=== PATIENT | male | born 1980 | race Caucasian/White ===

== ENCOUNTER 2018-10-14 12:57 | Emergency (ER) | payer SELFPAY ==
[~2018-10-14] VITALS: Ht 177.8 cm; Wt 73.0 kg
[2018-10-14 13:00] VITALS: BP 136/86
[2018-10-14] MEDS ORDERED: BACITRACIN ZINC OINT UDPKT TOP ONE (14:00)
[2018-10-14] MEDS ORDERED: LIDOCAINE HCL/PF 1% 10 MG/ML 5ML VIAL IJ ONE (14:00)
== END 2018-10-14 16:06 | disposition home or self-care (01) ==
LOC: ER 12:57
DX: S01.01XA Laceration without foreign body of scalp, initial encounter (principal); W17.89XA Other fall from one level to another, initial encounter; Y93.89 Activity, other specified; Y92.812 Truck as the place of occurrence of the external cause
CPT/HCPCS: 12002; 99283; J3490